=== PATIENT | female | born 1970 | race Caucasian/White ===

== ENCOUNTER → 2018-10-09 | Outpatient (CLI) | payer OTHER ==
[~2018-10-09] MED LIST: GADOBUTROL 10 MMOL/10 ML PFS ONE; OMNIPAQUE 350 MG/ML, 100ML BOTTLE ONE
== END | disposition home or self-care (01) ==
LOC: CFH 09:16
PROVIDERS: ATTEND Nurse Practitioner Family
DX: Z12.31 Encounter for screening mammogram for malignant neoplasm of breast (principal); R92.1 Mammographic calcification found on diagnostic imaging of breast; D18.02 Hemangioma of intracranial structures
CPT/HCPCS: 70496; 70553; 77067; A9585; Q9967

== ENCOUNTER 2018-10-28 08:00 | Outpatient (CLI) | payer OTHER ==
[2018-10-28] MEDS ORDERED: LIDOCAINE 1%, 20ML ONE (11:08)
[2018-10-28] MEDS ORDERED: SODIUM BICARBONATE 4.0%, 5ML ONE (11:08)
[2018-10-28] MEDS ORDERED: LIDOCAINE 1%-EPI 1:100K, 20ML ONE (11:08)
== END 2018-11-04 10:40 | disposition home or self-care (01) ==
LOC: CFH 08:00
PROVIDERS: ATTEND Family Medicine
DX: C50.511 Malignant neoplasm of lower-outer quadrant of right female breast (principal); Z17.0 Estrogen receptor positive status [ER+]
CPT/HCPCS: 19083; 38505; 76942; 77065; 88305; 88341; 88342; 88360; J3490; 19285

== ENCOUNTER → 2018-11-11 | Outpatient (CLI) | payer OTHER ==
[~2018-11-11] MED LIST changes: -GADOBUTROL 10 MMOL/10 ML PFS ONE; +LIDOCAINE 1%, 20ML ONE; +LIDOCAINE 1%-EPI 1:100K, 20ML ONE; -OMNIPAQUE 350 MG/ML, 100ML BOTTLE ONE; +SODIUM BICARBONATE 4.0%, 5ML ONE
== END | disposition home or self-care (01) ==
LOC: CFH 08:37
PROVIDERS: ATTEND Family Medicine
DX: N60.22 Fibroadenosis of left breast (principal)
CPT/HCPCS: 19081; 77065; 88305; J3490

== ENCOUNTER → 2018-12-04 | Outpatient (CLI) | payer OTHER ==
[~2018-12-04] MED LIST changes: +CLON0.5T11 PO; +HYOS0.1282 PO; +LAMO150T2 PO; +LEVO50TA5 PO; -LIDOCAINE 1%, 20ML ONE; -LIDOCAINE 1%-EPI 1:100K, 20ML ONE; -SODIUM BICARBONATE 4.0%, 5ML ONE
== END | disposition home or self-care (01) ==
LOC: STAR 10:07
PROVIDERS: ATTEND Surgery
DX: Z02.9 Encounter for administrative examinations, unspecified (principal)

== ENCOUNTER 2018-12-10 10:11 | Day surgery (SDC) | payer OTHER ==
[~2018-12-10] VITALS: Ht 157.5 cm; Wt 82.5 kg
[2018-12-10] MEDS ORDERED: LACTATED RINGERS 1,000 ML IV SCH (10:44)
[2018-12-10] MEDS ORDERED: GABAPENTIN 300 MG CAPSULE PO ONE (11:00)
[2018-12-10] MEDS ORDERED: ONDANSETRON ODT 8 MG PO ONE (11:00)
[2018-12-10] MEDS ORDERED: SCOPOLAMINE PATCH, 1.5MG PATCH.TD72 TD ONE (11:00)
[2018-12-10] MEDS ORDERED: ACETAMINOPHEN 500 MG TABLET PO ONE (11:00)
[2018-12-10 12:07] VITALS: BP 103/64
[2018-12-10] MEDS ORDERED: ISOSULFAN BLUE 10 MG/ML, 5ML IV ONE (12:36)
[2018-12-10] MEDS ORDERED: BUPIVACAINE/PF-EPI 0.5% 1:200K ONE (12:36)
[2018-12-10 12:47] LABS: HCG UR SG 1.015 (1.003-1.030)
[2018-12-10] MEDS ORDERED: OXYcodone 5 MG/5 ML ORAL.SOL UDC PO PRN (13:00)
[2018-12-10] MEDS ORDERED: PROMETHAZINE 25 MG/ML, 1ML IM PRN ×2 (13:00)
[2018-12-10] MEDS ORDERED: PROMETHAZINE 12.5 MG SUPP PR PRN (13:00)
[2018-12-10] MEDS ORDERED: HALOPERIDOL 5 MG/ML IV PRN (13:00)
[2018-12-10] MEDS ORDERED: ONDANSETRON 2MG/ML, 2ML IV PRN (13:00)
[2018-12-10] MEDS ORDERED: PROMETHAZINE 25 MG SUPP PR PRN (13:00)
[2018-12-10] MEDS ORDERED: MEPERIDINE/PF 25MG/0.5ML IVPush PRN (13:00)
[2018-12-10] MEDS ORDERED: FENTANYL PF 100 MCG/2ML IV PRN (13:00)
[2018-12-10] MEDS ORDERED: ONDANSETRON ODT 8 MG PO PRN (13:00)
[2018-12-10] MEDS ORDERED: HYDROmorphone 2 MG/ML, 1ML IVPush PRN (13:00)
[2018-12-10] MEDS ORDERED: hydrALAzine 20 MG/ML, 1ML IV PRN (13:00)
[2018-12-10] MEDS ORDERED: LABETALOL 5MG/ML, 20ML IV PRN (13:00)
[2018-12-10] MEDS ORDERED: PROMETHAZINE 25 MG/ML, 1ML IV PRN (13:00)
[2018-12-10] MEDS ORDERED: MORPHINE SULFATE 4 MG/ML, 1ML IVPush PRN (13:00)
[2018-12-10] MEDS ORDERED: ROCURONIUM 10 MG/ML,10ML ONE (13:35)
[2018-12-10] MEDS ORDERED: NEOSTIGMINE 1 MG/ML, 10ML ONE (13:35)
[2018-12-10] MEDS ORDERED: PROPOFOL 10 MG/ML, 20ML ONE (13:35)
[2018-12-10] MEDS ORDERED: DEXAMETHASONE 4 MG/ML, 1ML ONE (13:35)
[2018-12-10] MEDS ORDERED: ONDANSETRON 2MG/ML, 2ML ONE (13:35)
[2018-12-10] MEDS ORDERED: CEFAZOLIN 1,000 MG ONE (13:35)
[2018-12-10] MEDS ORDERED: GLYCOPYRROLATE 0.2MG/1ML, 5ML ONE (13:35)
[2018-12-10] MEDS ORDERED: OXYcodone 5 MG/5 ML ORAL.SOL UDC ONE (15:25)
== END 2018-12-10 18:30 | disposition home or self-care (01) ==
LOC: OUT 10:11 → EDSTATUS 13:00 → OUT 18:30
PROVIDERS: ATTEND Surgery
DX: C50.511 Malignant neoplasm of lower-outer quadrant of right female breast (principal); R59.1 Generalized enlarged lymph nodes; F41.9 Anxiety disorder, unspecified; E03.9 Hypothyroidism, unspecified; Z98.890 Other specified postprocedural states; Z72.89 Other problems related to lifestyle; Z88.0 Allergy status to penicillin; Z88.8 Allergy status to other drugs, medicaments and biological substances
CPT/HCPCS: 19301; 38525; 38792; 76098; 81025; 88307; 88329; 88333; A9541; J0690; J1100; J2250; J2405; J2704; J2710; J3010; J3490; J7120; Q0162

== ENCOUNTER 2018-12-28 08:20 | Outpatient (CLI) | payer OTHER | END 2018-12-28 23:59 | disposition home or self-care (01) | LOC: ROC 08:20 | PROVIDERS: ATTEND Radiology Radiation Oncology | DX: C50.511 Malignant neoplasm of lower-outer quadrant of right female breast (principal) | CPT/HCPCS: 99214; G0463 ==

== ENCOUNTER 2018-12-31 09:19 | Outpatient (CLI) | payer OTHER | END 2018-12-31 23:59 | disposition home or self-care (01) | LOC: PETCFH 09:19 | PROVIDERS: ATTEND Internal Medicine Hematology & Oncology | DX: Z02.9 Encounter for administrative examinations, unspecified (principal) ==

== ENCOUNTER 2019-04-19 10:24 | Outpatient (CLI) | payer OTHER | END 2019-04-19 23:59 | disposition home or self-care (01) | LOC: ROC 10:24 | PROVIDERS: ATTEND Radiology Radiation Oncology | DX: C50.511 Malignant neoplasm of lower-outer quadrant of right female breast (principal) | CPT/HCPCS: 99213; G0463 ==

== ENCOUNTER → 2019-04-19 | Outpatient (CLI) | payer OTHER | END | disposition home or self-care (01) | LOC: ROC 08:00 | PROVIDERS: ATTEND Radiology Radiation Oncology | DX: Z02.9 Encounter for administrative examinations, unspecified (principal) ==

== ENCOUNTER → 2019-11-04 | Outpatient (CLI) | payer OTHER | END | disposition home or self-care (01) | LOC: CFH 12:47 | PROVIDERS: ATTEND Internal Medicine Hematology & Oncology | DX: Z12.31 Encounter for screening mammogram for malignant neoplasm of breast (principal); Z85.3 Personal history of malignant neoplasm of breast | CPT/HCPCS: 77063; 77067 ==

== ENCOUNTER → 2019-11-12 | Outpatient (CLI) | payer OTHER | END | disposition home or self-care (01) | LOC: ROC 10:05 | PROVIDERS: ATTEND Radiology Radiation Oncology | DX: C50.511 Malignant neoplasm of lower-outer quadrant of right female breast (principal); Z79.899 Other long term (current) drug therapy | CPT/HCPCS: 99212; G0463 ==

== ENCOUNTER → 2020-02-21 | Outpatient (CLI) | payer OTHER ==
[~2020-02-21] MED LIST changes: +CLON-364 PO; -CLON0.5T11 PO; -LAMO150T2 PO; +LAMO150T4 PO
== END | disposition home or self-care (01) ==
LOC: ROC 07:57
PROVIDERS: ATTEND Radiology Radiation Oncology
DX: C50.511 Malignant neoplasm of lower-outer quadrant of right female breast (principal)
CPT/HCPCS: 99212; G0463